=== PATIENT | female | born 1980 | race Caucasian/White ===

== ENCOUNTER 2017-12-29 22:22 | Observation (INO) | payer MEDICAID, OTHER ==
[~2017-12-29] VITALS: Ht 172.7 cm; Wt 85.7 kg
[2017-12-29] MEDS ORDERED: LACTATED RINGER'S 1,000 ML IV ONE (22:48)
[2017-12-29] MEDS ORDERED: TERBUTALINE SULFATE 1 MG/ML 1ML VIAL SC ONE (22:49)
[2017-12-29] MEDS: TERBUTALINE SULFATE 1 MG/ML 1ML VIAL SC SCH ×3 (23:15→23:42)
[2017-12-29] MEDS ORDERED: FERR-7 PO (23:21)
[2017-12-29] MEDS ORDERED: LEVO50TA7 PO (23:21)
[2017-12-29] MEDS ORDERED: PREN27TA7 OR (23:21)
[2017-12-29 23:22] LABS: Urine Bacteria FEW /hpf (None Seen); Urine Blood Negative /uL (Negative); Urine Budding Yeast OCCASIONAL /hpf (None Seen); Urine Mucus FEW (None Seen); Urine WBC 37 /hpf (0 - 5)
[2017-12-29] MEDS ORDERED: NIFEdipine 10 MG CAP PO ONE (23:30)
[2017-12-29] MEDS ORDERED: BETAMETHASONE ACET (6MG/ML) 5ML VIAL IM ONE (23:30)
[2017-12-29 23:33] LABS: Alcohol, Urine < 3.0 mg/dL (0-5); Amphetamine Screen, Urine NEGATIVE (NEGATIVE); Barbiturate Scree,Urine NEGATIVE (NEGATIVE); Benzodiazephine Screen, Urine NEGATIVE (NEGATIVE); Cannabinoid Screen, Urine NEGATIVE (NEGATIVE); Cocaine Screen, Urine NEGATIVE (NEGATIVE); Opiate Scree,Urine NEGATIVE (NEGATIVE); Phencyclidine Screen, Urine NEGATIVE (NEGATIVE)
[2017-12-29] MEDS ORDERED: BETAMETHASONE ACET (6MG/ML) 5ML VIAL ONE (23:38)
[2017-12-31] MEDS ORDERED: NIF10C PO (16:40)
== END 2017-12-30 00:52 | disposition home or self-care (01) | DRG 566 ==
LOC: LDRP 22:22
PROVIDERS: ADMIT Obstetrics & Gynecology; ATTEND Obstetrics & Gynecology
DX: O26.892 Other specified pregnancy related conditions, second trimester (principal); O62.9 Abnormality of forces of labor, unspecified; O23.42 Unspecified infection of urinary tract in pregnancy, second trimester; R10.9 Unspecified abdominal pain; M54.9 Dorsalgia, unspecified; Z3A.27 27 weeks gestation of pregnancy
CPT/HCPCS: 59025; 80307; 81001; 81002; 94760; 96360; 96361; 96372; G0378; J0702; J3105; 96365; 96366

== ENCOUNTER 2017-12-31 16:25 | Observation (INO) | payer MEDICAID ==
[~2017-12-31] VITALS: Ht 172.7 cm; Wt 86.2 kg
[~2017-12-31 16:25] MED LIST: FERR-7 PO; LEVO50TA7 PO; PREN27TA7 OR
[2017-12-31] MEDS ORDERED: BETAMETHASONE ACET (6MG/ML) 5ML VIAL IM ONE (16:30)
[2017-12-31] MEDS ORDERED: NIF10C PO (16:40)
== END 2017-12-31 16:55 | disposition home or self-care (01) | DRG 566 ==
LOC: LDRP 16:25
PROVIDERS: ADMIT Obstetrics & Gynecology; ATTEND Obstetrics & Gynecology
DX: O62.9 Abnormality of forces of labor, unspecified (principal); Z3A.27 27 weeks gestation of pregnancy
CPT/HCPCS: 59025; 81002; 96372; G0378

== ENCOUNTER 2025-08-20 10:57 | Emergency (ER) | payer MEDICAID, OTHER ==
[~2025-08-20] VITALS: Ht 170.2 cm; Wt 93.5 kg
[~2025-08-20 10:57] MED LIST changes: +LEVO25TA6 PO
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
[2025-08-20 12:25] VITALS: BP 122/84; PULSE 74; RESP 18; TEMP 97.8; O2SAT 98
== END 2025-08-20 12:26 | disposition home or self-care (01) ==
LOC: ER 11:01
DX: S93.402A Sprain of unspecified ligament of left ankle, initial encounter (principal); S90.32XA Contusion of left foot, initial encounter; I50.9 Heart failure, unspecified; E03.9 Hypothyroidism, unspecified; Z79.890 Hormone replacement therapy; Z79.899 Other long term (current) drug therapy; X58.XXXA Exposure to other specified factors, initial encounter; Y93.89 Activity, other specified; Y92.89 Other specified places as the place of occurrence of the external cause; Y99.8 Other external cause status
CPT/HCPCS: 73700